=== PATIENT | male | born 1990 | race American Indian/Alaskan Native ===

== ENCOUNTER 2016-09-27 13:37 | Emergency (ER) | payer OTHER ==
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
--- NOTE | 2016-09-27 14:43 | XRay Report ---
RIGHT GREAT TOE: History: Pain after trauma. The bony architecture is intact. Bony alignment is normal. No soft tissue abnormalities are seen. The joint spaces appear preserved. IMPRESSION: Normal right great toe.
[2016-09-27] MEDS ORDERED: XYLOCAINE 2%/EPI 1:100,000 INFILTRATI ONE (16:04)
[2016-09-27] MEDS ORDERED: TRIPLE ANTIBIOTIC TP ONE (16:05)
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
[2016-09-27] MEDS ORDERED: NORCO 5/325 PO ONE (18:33)
[2016-09-27 18:39] VITALS: BP 127/72
== END 2016-09-27 18:39 | disposition home or self-care (01) ==
LOC: ED 13:37
DX: S93.509A Unspecified sprain of unspecified toe(s), initial encounter (principal); S51.012A Laceration without foreign body of left elbow, initial encounter; V89.2XXA Person injured in unspecified motor-vehicle accident, traffic, initial encounter; W22.11XA Striking against or struck by driver side automobile airbag, initial encounter; Y93.89 Activity, other specified; Y99.9 Unspecified external cause status; Y92.410 Unspecified street and highway as the place of occurrence of the external cause
CPT/HCPCS: 70450; A6250